=== PATIENT | male | born 1980 | race Caucasian/White ===

== ENCOUNTER 2022-06-29 16:34 | Outpatient (CLI) | payer BC, SELFPAY | END 2022-06-29 16:35 | disposition home or self-care (01) | PROVIDERS: PCP Family Medicine; Visit Provider Family Medicine | DX: R03.0 Elevated blood-pressure reading, without diagnosis of hypertension (principal); Z13.6 Encounter for screening for cardiovascular disorders | CPT/HCPCS: 80048; 80061 ==

== ENCOUNTER 2024-08-27 07:55 | Outpatient (CLI) | payer BC, SELFPAY | END 2024-08-27 07:56 | disposition home or self-care (01) | LOC: NFLDREF 08-30 10:13 | PROVIDERS: PCP Family Medicine; Referring Provider Family Medicine; Visit Provider Family Medicine | DX: E78.5 Hyperlipidemia, unspecified (principal); R53.83 Other fatigue | CPT/HCPCS: 80048; 80061; 84403; 84443 ==